=== PATIENT | female | born 1955 | race Caucasian/White ===

== ENCOUNTER 2021-01-27 14:29 | Outpatient (CLI) | payer OTHER, SELFPAY ==
--- NOTE | ~2021-01-27 | MR_ITS ---
EXAMINATION: MR lumbar spine wo/w con DATE: 01/27/2021 15:57 INDICATION: Acute onset low back pain with left-sided sciatica. TECHNIQUE: Magnetic resonance imaging (MRI) of the lumbar spine was performed without and with 12 mL MultiHance intravenous contrast. Sequences included sagittal T2-weighted FSE, sagittal T2-weighted FS FSE, sagittal T1-weighted FSE, and axial T2-weighted FSE. COMPARISON: None FINDINGS: Motion artifact is noted. There is 7 mm anterolisthesis of L4 on L5. Vertebral body heights are normal. There is mildly decreased disc height at L1-L2, L2-L3, and L3-L4 and moderately decrease d disc height at L4-L5 and L5-S1 with endplate remodeling. There is a hemangioma in L3 vertebral body . The distal spinal cord signal intensity is normal. The conus medullaris is at T12. The following di sc levels are specifically discussed: L1-L2: The disc is bulging. There is moderate bilateral facet joint osteoarthritis. There is mild rebecca ateral neural foraminal stenosis. There is mild central canal stenosis. L2-L3: The disc is bulging and has an annular fissure. There is severe bilateral facet joint osteoart hritis. There is mild bilateral neural foraminal stenosis. There is mild central canal stenosis. L3-L4: The disc is bulging and has an annular fissure. There is severe bilateral facet joint osteoart hritis. There is mild bilateral neural foraminal stenosis. There is mild central canal stenosis. L4-L5: The disc is bulging and has an annular fissure. There is severe bilateral facet joint osteoart hritis. There is moderate bilateral neural foraminal stenosis. There is severe central canal stenosis . L5-S1: The disc is bulging. A left central extrusion that abuts both the L4-L5 disc and L5-S1 disc wi th 2.0 cm craniocaudal dimension may arise from the L5-S1 disc. There is mass effect on the left S1 n erve root in left lateral recess at the L5-S1 disc level. There is moderate right and severe left fac et joint osteoarthritis. There is moderate bilateral neural foraminal stenosis. There is mild central canal stenosis. IMPRESSION: 1. Severe lumbar spondylosis. Reviewed, dictated and finalized at location A.
[2021-01-27 15:19] LABS: Estimated Glomerular Filt Rate > 60
== END 2021-01-27 14:30 | disposition home or self-care (01) ==
PROVIDERS: PCP Family Medicine
DX: M54.42 Lumbago with sciatica, left side (principal); M47.816 Spondylosis without myelopathy or radiculopathy, lumbar region
CPT/HCPCS: 72158; A9577